=== PATIENT | female | born 1965 | race Caucasian/White ===

== ENCOUNTER → 2017-03-01 | Outpatient (CLI) | payer BC ==
[~2017-03-01] MED LIST: DOCU100C37 PO; HYDR-3816 PO; IBUP-1773 PO; SIME80TA16 PO
--- NOTE | 2017-03-02 13:16 | Diagnostic Imaging Report ---
Bilateral screening mammogram 2D views with tomosynthesis. The current study was also evaluated with a Computer Aided Detection (CAD) system. INDICATION: Screening. No current complaints stated on the questionnaire. COMPARISON: 02/29/16. FINDINGS: The breasts are composed of scattered fibroglandular densities. Bilateral retropectoral symmetric implants are seen. Allowing for technique and positional differences, no suspicious change is seen. IMPRESSION: No significant change. ACR BI-RADS Category 2: Benign findings. Result letter will be mailed to the patient. Note: At least 10% of breast cancer is not imaged by mammography. Dictated by: Dictated on workstation # [id number]
== END ==
LOC: RAD 08:46
PROVIDERS: ATTEND Nurse Practitioner
DX: Z12.31 Encounter for screening mammogram for malignant neoplasm of breast (principal)
CPT/HCPCS: 77067

== ENCOUNTER 2017-03-10 11:32 | Outpatient (CLI) | payer BC ==
[~2017-03-10] VITALS: Ht 162.6 cm; Wt 54.4 kg
== END 2017-03-10 12:52 ==
LOC: PREOP 11:32
PROVIDERS: ATTEND Surgery
DX: Z01.818 Encounter for other preprocedural examination (principal); Z12.11 Encounter for screening for malignant neoplasm of colon

== ENCOUNTER 2017-03-16 07:02 | Day surgery (SDC) | payer BC ==
[~2017-03-16] VITALS: Ht 162.6 cm; Wt 54.4 kg
[2017-03-16] MEDS ORDERED: LACTATED RINGERS 1,000 ML IV ONE (07:03)
[2017-03-16] MEDS ORDERED: LACTATED RINGERS 1,000 ML IV STA (07:09)
[2017-03-16 07:15] VITALS: BP 111/87
--- NOTE | 2017-03-16 07:40 | Progress Note-Pre Operative ---
Pre-Operative Progress Note H&P Reviewed The H&P was reviewed, patient examined and no changes noted. Date Seen by Provider: Mar 16, 2017 Time Seen by Provider: 07:39 Date H&P Reviewed: Mar 16, 2017 Time H&P Reviewed: 07:39 Pre-Operative Diagnosis: screening colonoscopy ALYSE PROCTOR DO Mar 16, 2017 07:40
[2017-03-16] MEDS ORDERED: PROPOFOL INJECTION 50 ML IV ONE ×2 (07:44→08:12)
[2017-03-16] MEDS ORDERED: MIDAZOLAM 5 MG/5 ML (VERSED) VIAL ONE (07:45)
[2017-03-16 08:40] VITALS: BP 102/79
--- NOTE | 2017-03-16 08:58 | Progress Note-Post Operative ---
Post-Operative Progess Note Surgeon (s)/Tagman (s) Surgeon ALYSE PROCTOR DO Tagman: na Pre-Operative Diagnosis screening colonoscopy Post-Operative Diagnosis internal hemmorhoid Procedure & Operative Findings Date of Procedure 03/16/17 Procedure Performed/Findings colonoscopy Anesthesia Type per director of critical care Estimated Blood Loss Estimated blood loss (mL): none Specimens/Packing Specimens Removed na ALYSE PROCTOR DO Mar 16, 2017 08:58
--- NOTE | 2017-03-16 09:00 | Discharge Inst-Simple/Standard ---
Discharge Inst-Standard Patient Instructions/Follow Up Plan of Care/Instructions/FU: repeat colonoscopy 10 years or if family history colon cancer 5 years. any problems before that be seen at that time. Activity as Tolerated: Yes Discharge Diet: Regular Diet ALYSE PROCTOR DO Mar 16, 2017 09:00
[2017-03-16 09:10] VITALS: BP 120/82
[2017-03-16 09:15] VITALS: BP 120/82
--- NOTE | 2017-03-16 22:36 | OPERATIVE REPORT ---
DATE OF SERVICE: 03/16/2017 PREOPERATIVE DIAGNOSIS: Screening colonoscopy. POSTOPERATIVE DIAGNOSIS: Normal colon, internal hemorrhoids. PROCEDURE: Colonoscopy. SURGEON: Alyse Bergeron DO. ANESTHESIA: Per BRICKLAYER APPRENTICE. ESTIMATED BLOOD LOSS: None. COMPLICATIONS: None. INDICATIONS: The patient is a 51-year-old female in need of screening colonoscopy. She understands the risks and benefits of procedure and wished to proceed with procedure. Consent was signed and on the chart. DESCRIPTION OF PROCEDURE: The patient was taken to the endoscopy suite, placed in left lateral recumbent position. Timeout was performed. Digital rectal exam was performed showing a small internal hemorrhoid. Scope was inserted in the rectum and advanced all the way to the cecum with minimal difficulty. Prep was adequate. There are no polyps, masses or ulcerations of the cecum. Scope was then slowly retracted back. There were no polyps, masses or ulcerations within the ascending colon, transverse, descending and sigmoid colon. The scope was in the rectum, where it was also retroflexed noting internal hemorrhoids. Scope was returned to its normal position, slowly withdrawn until completely removed, noting no other pathology. The patient tolerated procedure well without any complications. She was taken to the recovery room in stable condition. RECOMMENDATIONS: The patient will need a repeat colonoscopy in 10 years unless family history of colon cancer, which would then be 5 years. If she has any problems prior to that, she should be reevaluated at that time. Job ID: [id number] DocumentID: [id number] Dictated Date: 03/16/2017 17:20:42 Clinical Implementation Specialist Date: 03/16/2017 22:35:24 Dictated By: ALYSE BERGERON DO
== END 2017-03-16 09:15 | disposition home or self-care (01) ==
LOC: ENDO 07:02
PROVIDERS: ATTEND Surgery
DX: Z12.11 Encounter for screening for malignant neoplasm of colon (principal); K64.8 Other hemorrhoids

== ENCOUNTER → 2018-03-06 | Outpatient (CLI) | payer BC ==
[~2018-03-06] MED LIST changes: +HYDR-34 PO; -HYDR-3816 PO
--- NOTE | 2018-03-06 15:42 | Diagnostic Imaging Report ---
INDICATION: Routine screening. COMPARISON: Comparison is made with prior mammograms from 03/01/2017 and 02/29/2016. TECHNIQUE: 2D and 3D bilateral screening mammography was performed with computer-aided detection (CAD) system. FINDINGS: Subpectoral bilateral breast implants are noted. Scattered fibroglandular densities are seen bilaterally. Implant contours appear smooth. No mass or malignant appearing microcalcifications are seen. The axillae are unremarkable. IMPRESSION: No mammographic features suspicious for malignancy are identified. ACR BI-RADS Category 2: Benign findings. Result letter will be mailed to the patient. Note: At least 10% of breast cancer is not imaged by mammography. Dictated by: Dictated on workstation # [id number]
== END ==
LOC: RAD 13:30
PROVIDERS: ATTEND Nurse Practitioner
DX: Z12.31 Encounter for screening mammogram for malignant neoplasm of breast (principal)
CPT/HCPCS: 77067

== ENCOUNTER → 2019-03-12 | Outpatient (CLI) | payer BC ==
--- NOTE | 2019-03-12 11:55 | Diagnostic Imaging Report ---
INDICATION: Routine screening. Correlation is made with prior mammograms 03/06/2018 and 03/01/2017. 2-D and 3-D bilateral screening mammography was performed with CAD. Bilateral subpectoral breast implants are again noted. Implant contours are smooth. Scattered breast parenchymal density is noted bilaterally. No dominant mass or malignant appearing microcalcifications are seen. The axillae are unremarkable. IMPRESSION: BI-RADS Category 2 No mammographic features suspicious for malignancy are identified. ACR BI-RADS Category 2: Benign findings. Result letter will be mailed to the patient. Note: At least 10% of breast cancer is not imaged by mammography. Dictated by: Dictated on workstation # [id number]
== END ==
LOC: RAD 09:15
PROVIDERS: ATTEND Nurse Practitioner
DX: Z12.31 Encounter for screening mammogram for malignant neoplasm of breast (principal)
CPT/HCPCS: 77067

== ENCOUNTER → 2020-03-26 | Outpatient (CLI) | payer BC, OTHER ==
--- NOTE | 2020-03-26 12:47 | Diagnostic Imaging Report ---
Indication: Routine screening. Comparison is made prior mammogram 03/12/2019 and 03/06/2018. 2-D and 3-D bilateral screening mammography was performed with CAD. Bilateral breast implants again noted. Implant contours are smooth. Scattered fibroglandular densities in both breasts are noted. No mass or malignant appearing microcalcifications are seen. Axillae are unremarkable. IMPRESSION: BI-RADS Category 2 No mammographic features suspicious for malignancy are identified. ACR BI-RADS Category 2: Benign findings. Result letter will be mailed to the patient. Note: At least 10% of breast cancer is not imaged by mammography. Dictated by: Dictated on workstation # [id number]
== END ==
LOC: RAD 15:26
PROVIDERS: ATTEND Family Medicine
DX: Z12.31 Encounter for screening mammogram for malignant neoplasm of breast (principal)
CPT/HCPCS: 77063; 77067

== ENCOUNTER → 2021-12-21 | Outpatient (CLI) | payer OTHER ==
--- NOTE | 2021-12-21 12:55 | Diagnostic Imaging Report ---
Indication: Routine screening. Comparison is made with prior mammogram from 03/26/2020 and 03/12/2019. 2-D and 3-D bilateral screening mammography was performed with CAD. CAD is utilized. The current study was also evaluated with a Computer Aided Detection (CAD) system. Bilateral subpectoral breast implants are again noted. Implant contours remain smooth without evidence of extracapsular rupture. Scattered fibroglandular densities are identified bilaterally. The parenchymal pattern is stable. No mass or malignant-appearing microcalcifications are seen. Axillae are unremarkable. IMPRESSION: BI-RADS Category 2 No mammographic features suspicious for malignancy are identified. ACR BI-RADS Category 2: Benign findings. Result letter will be mailed to the patient. Note: At least 10% of breast cancer is not imaged by mammography. Dictated by: Dictated on workstation # [id number]
== END ==
LOC: RAD 08:21
PROVIDERS: ATTEND Nurse Practitioner Family
DX: Z12.31 Encounter for screening mammogram for malignant neoplasm of breast (principal)
CPT/HCPCS: 77063; 77067

== ENCOUNTER → 2023-02-02 | Outpatient (CLI) | payer OTHER ==
--- NOTE | 2023-02-02 09:51 | Diagnostic Imaging Report ---
Indication: Routine screening. Comparison is made with prior mammogram from 12/21/2021 and 03/26/2020. 2-D and 3-D bilateral screening mammography was performed with CAD. The current study was also evaluated with a Computer Aided Detection (CAD) system. Scattered fibroglandular densities are identified bilaterally. Bilateral subpectoral breast implants again noted. Implant contours remain smooth. Breast parenchyma is stable. No mass or malignant-appearing microcalcifications are identified. Axillae are unremarkable. IMPRESSION: BI-RADS Category 2 No mammographic features suspicious for malignancy are identified. ACR BI-RADS Category 2: Benign findings. Result letter will be mailed to the patient. Note: At least 10% of breast cancer is not imaged by mammography. Dictated by: Dictated on workstation # [id number]
== END ==
LOC: RAD 07:41
PROVIDERS: ATTEND Physician Assistant
DX: Z12.31 Encounter for screening mammogram for malignant neoplasm of breast (principal)
CPT/HCPCS: 77063; 77067